=== PATIENT | male | born 1960 | race Caucasian/White ===

== ENCOUNTER 2022-11-05 17:00 | Outpatient (REF) | payer MEDICAID, SELFPAY ==
[2022-11-05 17:27] LABS: Abs Immature Grans 0.01 10^3/uL (0.0-0.06); Absolute Basophil Count 0.03 10^3/uL (0.0-0.2); Absolute Eosinophil Count 0.15 10^3/uL (0.0-0.7); Absolute Lymphocyte Count 1.36 10^3/uL (1.2-3.4); Absolute Monocyte Count 0.53 10^3/uL (0.1-0.8); Absolute Neutrophil Count 2.69 10^3/uL (1.2-6.7); Basophils % 0.6; Eosinophils % 3.1; HCT 41.6 % (40.0-50.0); HGB 13.7 g/dL (13.5-17.5); Immature Grans % 0.2; Lymphocytes % 28.5; MCH 31.3 pg (27.0-33.0); MCHC 32.9 % (32.0-36.0); MCV 95 fL (80-95); MPV 10.7 fL (8.0-11.0); Monocytes % 11.1; Neutrophils % 56.5; Platelet Count 164 10^3/uL (130-400); RBC 4.38 10^6/uL (4.36-5.78); RDW 13.3 % (11.8-14.1); RDW-SD 47.1 fL; WBC 4.77 10^3/uL (4.4-10.8)
[2022-11-05 17:42] LABS: Hemoglobin A1C 5.5 % (<5.7)
[2022-11-05 18:03] LABS: Vitamin D 25 Total 7.8 ng/mL (30-100)
[2022-11-05 18:11] LABS: ALT 28 U/L (16-63); AST 16 U/L (15-37); Albumin 3.5 g/dL (3.4-5.0); Alkaline Phosphatase 113 U/L (46-116); Anion Gap 8.1 mmol/L (3-11); BUN 9 mg/dL (7-18); Bilirubin, Total 0.6 mg/dL (0.2-1.0); CO2 28.9 mmol/L (21.0-32.0); Calculated LDL 115 mg/dL (<100); Chloride 105 mmol/L (98-107); Cholesterol 173 mg/dL (<200); Glucose 90 mg/dL (74-106); HDL Cholesterol 37 mg/dL (40-60); Potassium 4.1 mmol/L (3.5-5.1); Sodium 142 mmol/L (136-145); Total Protein 6.5 g/dL (6.4-8.2); Triglyceride 107 mg/dL (<150)
[2022-11-05 18:19] LABS: GGT 31 U/L (15-85)
== END 2022-11-05 17:01 | disposition home or self-care (01) ==
LOC: LBN 17:00
PROVIDERS: PCP Family Medicine; Visit Provider Family Medicine
DX: R68.89 Other general symptoms and signs (principal)
CPT/HCPCS: 80053; 80061; 82306; 82977; 83036; 83735; 84443; 85025

== ENCOUNTER 2022-12-12 01:02 | Outpatient (CLI) | payer MEDICAID, SELFPAY ==
--- NOTE | 2022-12-12 08:45 | DI.US_ITS ---
APPROVED REPORT EXAM: Comprehensive 2D, Doppler, and color-flow Echocardiogram Patient Location: Out-Patient Product Development Technician: Oralia Diggs RDCS ([facility]) Indications: Heart failure, Known PE 3 months ago Other Information Study Quality: Fair. Technically limited study due to body habitus. Conclusion Normal left ventricular wall thickness and chamber size. Ejection fraction is 55 to 60%. Wall motio n is normal Normal right ventricular size and systolic function Both atria are normal in size Aortic valve is mildly sclerotic and trileaflet without stenosis or regurgitation Estimated right ventricular systolic pressure is 16 mmHg Dilated ascending aorta, 4.19 cm Wall motion Left Ventricle The left ventricle is normal size. The left ventricular systolic function is normal. The left ventric ular ejection fraction is within the normal range. There is normal left ventricular wall thickness. T here is normal LV segmental wall motion. There is no ventricular septal defect visualized. LVEF is 57 %. Right Ventricle The right ventricle is normal size. The right ventricular systolic function is normal. The RVSP is 16 .5 mmHg. Atria The left atrium size is normal. The right atrium size is normal. The interatrial septum is intact wit h no evidence for an atrial septal defect. Aortic Valve The Aortic valve is mildly sclerotic. There is no aortic valvular stenosis. No aortic regurgitation i s present. Mitral Valve The mitral valve is normal in structure. No evidence of mitral valve stenosis. Trace mitral regurgita tion. Tricuspid Valve The tricuspid valve is normal in structure. There is no tricuspid valve stenosis. Trace to mild tric uspid regurgitation. Pulmonic Valve The pulmonary valve is normal in structure. There is no pulmonic valvular stenosis. There is no pulmo amanda valvular regurgitation. Great Vessels The aortic root is normal in size. The ascending aorta is moderately dilated. Aortic arch is normal i n caliber. IVC is normal in size and collapses >50% with inspiration. Pericardium There is no pericardial effusion. 2D Dimensions IVSD d PLAX 1.06 cm M: 0.6-1.2 LV Vol A2C d MOD 167.3 mL LVPW d PLAX 1.08 cm M: 0.6 - 1.2 LV Vol A4C d MOD 159.5 mL LVID d PLAX 5.32 cm M: 4.2 - 5.8 LA vol/ BSA A4C s A-L 26.7 mL/m2 LVDs 3.70 cm M: 2.5 - 4.0 LA Area A4C s MOD 22.28 cm2 Ao Root d 3.75 cm M: 3.1 - 3.7 LV EF A4C MOD 56.1 % RA Area A4C 19.29 cm2 LV EF A2C MOD 57.2 % RA Vol/ BSA A4C s A-L 21.6 mL/m2 LV EF Biplane MOD 56.4 % Ao Asc Diam d 4.19 cm M: 2.6 - 3.4 SV 92.27 mL LV EF Teichholz 57.1 % SV Index 37.38 mL/m2 LVEF (Meza's) 56.44 % M: 52 - 72 LV Volume 114.86 mL M: 62 - 150 LV Volume Index 46.50 mL/m2 M: 34 - 74 LV Vol Biplane MOD 163.5 mL FS 30.20 % M-Mode TAPSE 2.99 cm (M/F) >1.7 LV Diastology MV E' medial 0.075 (>0.07 m/s) E/A Ratio 0.8 LV E/e MED 7.15 (<14) MV E Vmax 0.54 (0.4-1.3 m/s) MV E' lateral 0.098 (>0.1 m/s) MV A Vmax 0.70 (0.4-1.3 m/s) LV E/e LAT 5.50 (<14) MV E/A Ratio 0.77 MV E/E' medial 7.19 MV E/E' lateral 5.53 Aortic Valve LVOT Area 3.62 cm2 AoV Area Vmax 2.59 cm2 LVOT Vmax 0.90 m/s AoV Area/ BSA (Vmax) 1.05 cm2/m2 LVOT Mean Kody. 0.60 m/s SERA Mean Kody. 2.40 cm2 LVOT Peak Grad 3.2 mmHg SERA Mean Kody. Index 0.97 cm2/m2 LVOT Mean Grad 1.7 mmHg LVOT VTI 0.204 m LVOT Diam s 2.10 cm AoV Vmax 1.26 m/s Velocity Ratio 0.71 AoV Mean Kody. 0.91 m/s AoV Peak Grad 6.4 mmHg LVOT SV 73.72 mL AoV Mean Grad 3.7 mmHg AoV VTI 0.249 m AoV Area VTI 2.96 cm2 AoV Area/ BSA (VTI) 1.20 cm/m2 Mitral Valve MV DT 211 (160-240 msec) MV PHT 61 msec MV Area PHT 3.59 cm2 Pulmonary Valve PV Vmax 0.78 (0.5-1.5 m/s) RVOT Peak Gr. 2.45 mmHg PV Peak Grad 2.4 mmHg RVOT Mean Gr. 1.30 mmHg PV Mean Grad 1.3 mmHg RVOT VTI 0.175 m PV VTI 0.159 m RVOT Vmax 0.78 m/s Tricuspid Valve TR Peak Grad 13.4 mmHg TR Vmax 1.84 m/s RA Pressure 3.00 mmHg RVSP (TR) 16.5 mmHg
== END 2022-12-12 01:22 ==
LOC: DI 01:02
PROVIDERS: PCP Family Medicine; Visit Provider Family Medicine
DX: I50.30 Unspecified diastolic (congestive) heart failure (principal)
CPT/HCPCS: 93306

== ENCOUNTER 2022-12-15 09:09 | Outpatient (CLI) | payer MEDICAID, SELFPAY ==
--- NOTE | 2022-12-15 09:00 | RT.EKG_ITS ---
APPROVED REPORT Exam: Resting ECG Reason for Exam: heart failure Patient Location: O HR:60 bpm ECG Measurements Heart Rate 60 AXIS AR 208 P 24 QRSd 99 QRS -4 QT 421 T 23 QTc 421 Conclusion Sinus rhythm...normal P axis, V-rate 50- 99 Borderline low voltage, extremity leads...all extremity leads <0.6mV Otherwise normal ECG
== END 2022-12-15 09:10 | disposition home or self-care (01) ==
LOC: DI.CARD 09:10
PROVIDERS: PCP Family Medicine; Visit Provider Internal Medicine Cardiovascular Disease
DX: I50.30 Unspecified diastolic (congestive) heart failure (principal)
CPT/HCPCS: 93010

== ENCOUNTER 2023-03-02 14:59 | Outpatient (REF) | payer MEDICAID, SELFPAY ==
[2023-03-02 16:20] LABS: Bilirubin Negative (Negative); Blood Negative (Negative); Clarity Clear (Clear); Glucose Negative (Negative); Ketones Negative (Negative); Leukocyte Esterase Negative (Negative); Nitrite Negative (Negative); Urobilinogen 0.2 mg/dL (Up to 0.2); pH 5.5 (5-8)
== END 2023-03-02 15:00 | disposition home or self-care (01) ==
LOC: LBN 14:59
PROVIDERS: PCP Family Medicine; Visit Provider Family Medicine
DX: R30.0 Dysuria (principal)
CPT/HCPCS: 81003; 87086